=== PATIENT | female | born 1955 | race Caucasian/White ===

== ENCOUNTER → 2019-03-30 | Outpatient (CLI) | payer MEDICARE, BC ==
[~2019-03-30] MED LIST: LIDOCAINE 1% (MPF) 5 ML VIAL SC ONE
== END | disposition home or self-care (01) ==
LOC: RAD 12:40
PROVIDERS: ATTEND Nurse Practitioner Family
DX: R78.81 Bacteremia (principal)
CPT/HCPCS: 36569; 71045; 76937

== ENCOUNTER 2019-05-11 12:22 | Inpatient (IN) | payer MEDICARE, MEDICAID ==
[~2019-05-11] VITALS: Ht 167.6 cm; Wt 79.8 kg
[~2019-05-11 12:22] MED LIST changes: +ACET-141 PO; +ACET325T33 PO; +BISA10SU55 RC; +CALC1TAB93 PO; +DOCU-144 PO; +ERGO500013 PO; +FENT1PAT TRANSDERM; +FENT1PAT8 TRANSDERM; +GABA300C16 PO; +GLUC1TAB24 PO; +HEPA500021 IJ; +IPRA3AMP29 INHALATION; +LEVO112T57 PO; -LIDOCAINE 1% (MPF) 5 ML VIAL SC ONE; +M-171CAP PO; +MAGN400O19 PO; +MINE133E23 PR; +MULT-105 PO; +OXYC15TA70 PO; +POLY17PO6 PO; +PROP60CA7 PO; +SENN-120 PO; +TOPI100T11 PO; +VENL150C PO; +VENL75TA2 PO
[2019-05-11] MEDS ORDERED: SOD CHLORIDE 0.9% 1,000 ML IV STA (12:25)
[2019-05-11] MEDS ORDERED: ALBUTEROL 0.5% (NEB) 2.5 MG/0.5 ML AMP INH STA (12:25)
[2019-05-11] MEDS ORDERED: CEFEPIME 2GM/50 ML (PMX) 50 ML IVPB STA (12:25)
[2019-05-11] MEDS ORDERED: IPRATROPIUM (NEB) 0.5 MG/2.5 ML AMP INH STA (12:25)
[2019-05-11] MEDS ORDERED: DEXAMETHASONE 10 MG/ML 1 ML INJ IV STA (12:25)
[2019-05-11] MEDS ORDERED: VANCOMYCIN 1 GM (PMX) 250 ML IVPB ONE (12:30)
[2019-05-11 12:40] VITALS: Ht 167.6 cm; Wt 79.8 kg
[2019-05-11] MEDS ORDERED: ONDANSETRON 4 MG INJ IV PRN (17:00)
[2019-05-11] MEDS ORDERED: oxyCODONE (CR) 15 MG TAB [oxyCONTIN] PO ONE (18:00)
[2019-05-11] MEDS ORDERED: oxyCODONE 15 MG TAB PO PRN (18:30)
[2019-05-11] MEDS ORDERED: NACL 0.9% 3 ML SYG IV SCH (19:00)
[2019-05-11] MEDS ORDERED: morphine 2 MG INJ IV PRN (19:00)
[2019-05-11] MEDS ORDERED: VANCOMYCIN IV PER PHARMACY XX SCH (19:00)
[2019-05-11] MEDS ORDERED: GUAIFENESIN/CODEINE 5ML CUP PO PRN (19:00)
[2019-05-11] MEDS: ALBUTEROL/IPRATROPIUM (NEB) 3 ML AMP HHN SCH (20:20)
[2019-05-11] MEDS: TOPIRAMATE 100 MG TAB PO SCH (21:00)
[2019-05-11] MEDS: POLYETHYLENE GLYCOL 17 GM PACKET PO SCH (21:00)
[2019-05-11] MEDS: oxyCODONE 5 MG TAB PO PRN (22:37)
[2019-05-11] MEDS: SENNA/DOCUSATE NA (8.6MG/50MG) TAB PO SCH (22:38)
[2019-05-11] MEDS: CALCIUM/VITAMIN D (500/200) TAB PO SCH (22:38)
[2019-05-11] MEDS: GABAPENTIN 300 MG CAP PO SCH (22:39)
[2019-05-11] MEDS: VANCOMYCIN 750 MG (PMX) 250 ML IVPB SCH (22:41)
[2019-05-11] MEDS: METHYLPREDNISOLONE 40 MG INJ IV SCH (23:05)
[2019-05-12 00:10] VITALS: BP 142/82; PULSE 67; RESP 20
[2019-05-12] MEDS ORDERED: LORAZEPAM 2 MG INJ IV PRN ×2 (01:30)
[2019-05-12] MEDS: CEFEPIME 1GM/50 ML (PMX) 50 ML IVPB SCH ×2 (02:10→12:39)
[2019-05-12] MEDS: ALBUTEROL 0.083% (NEB) 2.5 MG/3 ML AMP HHN PRN (02:52)
[2019-05-12 04:18] VITALS: BP 147/80; PULSE 71; RESP 20
[2019-05-12] MEDS: METHYLPREDNISOLONE 40 MG INJ IV SCH ×3 (06:26→21:47)
[2019-05-12] MEDS: LEVOTHYROXINE 112 MCG TAB PO SCH (06:26)
[2019-05-12 07:35] VITALS: BP 155/74; PULSE 65; RESP 19
[2019-05-12] MEDS: ALBUTEROL/IPRATROPIUM (NEB) 3 ML AMP HHN SCH ×3 (08:23→20:48)
[2019-05-12] MEDS: BISACODYL 10 MG SUPP PR SCH (09:00)
[2019-05-12] MEDS: PROPRANOLOL (LA) 60 MG CAP PO SCH (09:29)
[2019-05-12] MEDS: TOPIRAMATE 100 MG TAB PO SCH ×2 (09:29→20:54)
[2019-05-12] MEDS: SENNA/DOCUSATE NA (8.6MG/50MG) TAB PO SCH ×2 (09:30→20:55)
[2019-05-12] MEDS: POLYETHYLENE GLYCOL 17 GM PACKET PO SCH ×2 (09:30→20:55)
[2019-05-12] MEDS: GABAPENTIN 300 MG CAP PO SCH ×3 (09:30→20:55)
[2019-05-12] MEDS: CALCIUM/VITAMIN D (500/200) TAB PO SCH ×2 (09:30→20:55)
[2019-05-12] MEDS: VANCOMYCIN 750 MG (PMX) 250 ML IVPB SCH ×2 (09:36→21:47)
[2019-05-12] MEDS: oxyCODONE 5 MG TAB PO PRN ×2 (09:54→14:01)
[2019-05-12] MEDS: ENOXAPARIN 40 MG/0.4 ML SYG SC SCH (10:02)
[2019-05-12 11:16] VITALS: BP 134/74; PULSE 64; RESP 19
[2019-05-12] MEDS: LIDOCAINE 5% PATCH TD SCH (14:40)
[2019-05-12 15:38] VITALS: BP 143/73; PULSE 70; RESP 20
[2019-05-12 20:00] VITALS: BP 179/85; PULSE 76; RESP 20
[2019-05-13] VITALS: BP 142/67; PULSE 73; RESP 20
[2019-05-13] MEDS: CEFEPIME 1GM/50 ML (PMX) 50 ML IVPB SCH (01:00)
[2019-05-13 04:00] VITALS: BP 147/74; PULSE 75; RESP 19
[2019-05-13] MEDS: METHYLPREDNISOLONE 40 MG INJ IV SCH (06:33)
[2019-05-13] MEDS: LEVOTHYROXINE 112 MCG TAB PO SCH (06:33)
[2019-05-13 07:57] VITALS: BP 174/84; PULSE 69; RESP 18
[2019-05-13] MEDS: PROPRANOLOL (LA) 60 MG CAP PO SCH (08:46)
[2019-05-13] MEDS: TOPIRAMATE 100 MG TAB PO SCH ×2 (08:46→20:07)
[2019-05-13] MEDS: GABAPENTIN 300 MG CAP PO SCH ×3 (08:46→20:07)
[2019-05-13] MEDS: CALCIUM/VITAMIN D (500/200) TAB PO SCH ×2 (08:46→20:07)
[2019-05-13] MEDS: oxyCODONE 5 MG TAB PO PRN ×4 (08:48→21:49)
[2019-05-13] MEDS: POLYETHYLENE GLYCOL 17 GM PACKET PO SCH ×2 (08:49→20:13)
[2019-05-13] MEDS: SENNA/DOCUSATE NA (8.6MG/50MG) TAB PO SCH ×2 (08:49→20:13)
[2019-05-13] MEDS: BISACODYL 10 MG SUPP PR SCH (08:49)
[2019-05-13] MEDS: ENOXAPARIN 40 MG/0.4 ML SYG SC SCH (08:57)
[2019-05-13] MEDS: ALBUTEROL/IPRATROPIUM (NEB) 3 ML AMP HHN SCH ×3 (09:56→20:19)
[2019-05-13] MEDS: VANCOMYCIN 750 MG (PMX) 250 ML IVPB SCH (10:56)
[2019-05-13] MEDS: LIDOCAINE 5% PATCH TD SCH (10:56)
[2019-05-13 12:40] VITALS: BP 131/94; PULSE 67; RESP 18
[2019-05-13] MEDS ORDERED: BACLOFEN 10 MG TAB PO SCH (16:00)
[2019-05-13] MEDS: MEROPENEM 1 GM/50ML(PMX) 50 ML IVPB SCH ×2 (16:08→20:07)
[2019-05-13 16:32] VITALS: BP 132/84; PULSE 67; RESP 18
[2019-05-13 20:00] VITALS: BP 159/77; PULSE 64; RESP 19
[2019-05-13] MEDS: BACLOFEN 10 MG TAB PO SCH (20:07)
[2019-05-13] MEDS: MUPIROCIN 2% 22 GM OINT TOP SCH (20:08)
[2019-05-13] MEDS ORDERED: MELATONIN 3 MG TABLET PO SCH (21:00)
[2019-05-13] MEDS: DICLOFENAC SODIUM 1% GEL 100 GM TUBE TP SCH (21:03)
[2019-05-13] MEDS: VANCOMYCIN 1 GM 250 ML IVPB SCH (21:03)
[2019-05-14] VITALS: BP 160/89; PULSE 60; RESP 19
[2019-05-14 04:00] VITALS: BP 152/85; PULSE 64; RESP 18
[2019-05-14] MEDS: LEVOTHYROXINE 112 MCG TAB PO SCH (06:09)
[2019-05-14] MEDS ORDERED: POTASSIUM CHLORIDE (SR) 20 MEQ TAB PO STA (07:42)
[2019-05-14 07:58] VITALS: BP 197/91; PULSE 65; RESP 20
[2019-05-14] MEDS: ALBUTEROL/IPRATROPIUM (NEB) 3 ML AMP HHN SCH ×3 (08:00→20:20)
[2019-05-14] MEDS: MEROPENEM 1 GM/50ML(PMX) 50 ML IVPB SCH ×2 (08:36→23:33)
[2019-05-14] MEDS: BACLOFEN 10 MG TAB PO SCH ×2 (08:37→12:58)
[2019-05-14] MEDS: BISACODYL 10 MG SUPP PR SCH ×2 (08:37→09:00)
[2019-05-14] MEDS: SENNA/DOCUSATE NA (8.6MG/50MG) TAB PO SCH ×2 (08:37→21:00)
[2019-05-14] MEDS: GABAPENTIN 300 MG CAP PO SCH ×3 (08:37→21:00)
[2019-05-14] MEDS: CALCIUM/VITAMIN D (500/200) TAB PO SCH ×2 (08:37→21:00)
[2019-05-14] MEDS: TOPIRAMATE 100 MG TAB PO SCH ×2 (08:37→21:00)
[2019-05-14] MEDS: MUPIROCIN 2% 22 GM OINT TOP SCH ×2 (08:38→23:42)
[2019-05-14] MEDS: DICLOFENAC SODIUM 1% GEL 100 GM TUBE TP SCH ×4 (08:38→23:42)
[2019-05-14] MEDS: PROPRANOLOL (LA) 60 MG CAP PO SCH (08:38)
[2019-05-14] MEDS: ENOXAPARIN 40 MG/0.4 ML SYG SC SCH (08:45)
[2019-05-14] MEDS: POLYETHYLENE GLYCOL 17 GM PACKET PO SCH ×3 (09:00→21:00)
[2019-05-14] MEDS: VANCOMYCIN 1 GM 250 ML IVPB SCH (11:25)
[2019-05-14] MEDS: oxyCODONE 5 MG TAB PO PRN (11:59)
[2019-05-14 12:27] VITALS: BP 163/65; PULSE 68; RESP 20
[2019-05-14 16:25] VITALS: BP 98/55; PULSE 57; RESP 19
[2019-05-14] MEDS: RIFAMPIN 300 MG CAP PO SCH (16:37)
[2019-05-14 20:12] VITALS: BP 135/95; PULSE 58; RESP 16
[2019-05-14] MEDS ORDERED: LORAZEPAM 2 MG INJ IV ONE (22:00)
[2019-05-15] MEDS: TRIMETHOPRIM/SULFAMETHOXAZOLE 15 ML in DEXTROSE 5% 500 ML IVPB SCH ×4 (00:40→22:09)
[2019-05-15 02:12] VITALS: BP 141/81; PULSE 62; RESP 18
[2019-05-15] MEDS: LEVOTHYROXINE 112 MCG TAB PO SCH ×2 (06:01→06:41)
[2019-05-15 07:50] VITALS: BP 142/89; PULSE 71; RESP 18
[2019-05-15] MEDS: ALBUTEROL/IPRATROPIUM (NEB) 3 ML AMP HHN SCH ×3 (08:09→19:47)
[2019-05-15] MEDS: PROPRANOLOL (LA) 60 MG CAP PO SCH (08:37)
[2019-05-15] MEDS: GABAPENTIN 300 MG CAP PO SCH ×3 (08:37→20:57)
[2019-05-15] MEDS: RIFAMPIN 300 MG CAP PO SCH (08:37)
[2019-05-15] MEDS: SENNA/DOCUSATE NA (8.6MG/50MG) TAB PO SCH ×2 (08:37→21:00)
[2019-05-15] MEDS: POLYETHYLENE GLYCOL 17 GM PACKET PO SCH ×2 (08:38→21:00)
[2019-05-15] MEDS: MUPIROCIN 2% 22 GM OINT TOP SCH ×2 (08:38→21:01)
[2019-05-15] MEDS: TOPIRAMATE 100 MG TAB PO SCH ×2 (08:38→20:57)
[2019-05-15] MEDS: CALCIUM/VITAMIN D (500/200) TAB PO SCH ×2 (08:38→20:57)
[2019-05-15] MEDS: DICLOFENAC SODIUM 1% GEL 100 GM TUBE TP SCH ×4 (08:38→21:01)
[2019-05-15] MEDS: ENOXAPARIN 40 MG/0.4 ML SYG SC SCH (08:40)
[2019-05-15] MEDS: BISACODYL 10 MG SUPP PR SCH (09:00)
[2019-05-15] MEDS: MEROPENEM 1 GM/50ML(PMX) 50 ML IVPB SCH ×2 (10:14→20:56)
[2019-05-15 14:00] VITALS: BP 146/64; PULSE 78; RESP 18
[2019-05-15] MEDS: oxyCODONE 5 MG TAB PO PRN ×3 (14:06→23:00)
[2019-05-15] MEDS ORDERED: POTASSIUM CHLORIDE (SR) 20 MEQ TAB PO STA (14:13)
[2019-05-15] MEDS: BACLOFEN 10 MG TAB PO PRN ×2 (18:32→20:57)
[2019-05-15 20:19] VITALS: BP 119/68; PULSE 84; RESP 18
[2019-05-15] MEDS: MELATONIN 3 MG TABLET PO PRN (21:06)
[2019-05-15] MEDS ORDERED: BACLOFEN 10 MG TAB PO ONE (22:00)
[2019-05-16 02:30] VITALS: BP 146/83; PULSE 71; RESP 19
[2019-05-16] MEDS: TRIMETHOPRIM/SULFAMETHOXAZOLE 15 ML in DEXTROSE 5% 500 ML IVPB SCH ×3 (05:53→22:28)
[2019-05-16] MEDS: LEVOTHYROXINE 112 MCG TAB PO SCH (06:03)
[2019-05-16 07:46] VITALS: BP 159/77; PULSE 72; RESP 18
[2019-05-16] MEDS: ALBUTEROL 0.083% (NEB) 2.5 MG/3 ML AMP HHN PRN (08:55)
[2019-05-16] MEDS: ALBUTEROL/IPRATROPIUM (NEB) 3 ML AMP HHN SCH ×3 (08:58→21:18)
[2019-05-16] MEDS: POLYETHYLENE GLYCOL 17 GM PACKET PO SCH ×2 (09:00→21:00)
[2019-05-16] MEDS: BISACODYL 10 MG SUPP PR SCH (09:00)
[2019-05-16] MEDS: SENNA/DOCUSATE NA (8.6MG/50MG) TAB PO SCH ×2 (09:00→21:00)
[2019-05-16] MEDS: MEROPENEM 1 GM/50ML(PMX) 50 ML IVPB SCH ×2 (09:48→21:39)
[2019-05-16] MEDS: GABAPENTIN 300 MG CAP PO SCH ×3 (09:48→21:39)
[2019-05-16] MEDS: RIFAMPIN 300 MG CAP PO SCH (09:49)
[2019-05-16] MEDS: PROPRANOLOL (LA) 60 MG CAP PO SCH (09:49)
[2019-05-16] MEDS: MUPIROCIN 2% 22 GM OINT TOP SCH ×2 (09:50→21:40)
[2019-05-16] MEDS: CALCIUM/VITAMIN D (500/200) TAB PO SCH ×2 (09:50→21:39)
[2019-05-16] MEDS: TOPIRAMATE 100 MG TAB PO SCH ×2 (09:50→21:39)
[2019-05-16] MEDS: DICLOFENAC SODIUM 1% GEL 100 GM TUBE TP SCH ×4 (09:51→21:40)
[2019-05-16] MEDS: ENOXAPARIN 40 MG/0.4 ML SYG SC SCH (09:53)
[2019-05-16] MEDS: BACLOFEN 10 MG TAB PO PRN ×2 (10:15→16:58)
[2019-05-16] MEDS: oxyCODONE 5 MG TAB PO PRN ×3 (10:15→18:45)
[2019-05-16 14:29] VITALS: BP 133/78; PULSE 78; RESP 16
[2019-05-16 20:00] VITALS: BP 125/70; PULSE 73; RESP 18
[2019-05-17 03:30] VITALS: BP 118/66; PULSE 60; RESP 16
[2019-05-17] MEDS: BACLOFEN 10 MG TAB PO PRN ×2 (05:30→18:05)
[2019-05-17] MEDS: oxyCODONE 5 MG TAB PO PRN ×5 (05:30→23:34)
[2019-05-17] MEDS: TRIMETHOPRIM/SULFAMETHOXAZOLE 15 ML in DEXTROSE 5% 500 ML IVPB SCH (06:04)
[2019-05-17] MEDS: LEVOTHYROXINE 112 MCG TAB PO SCH (06:04)
[2019-05-17] MEDS: ALBUTEROL/IPRATROPIUM (NEB) 3 ML AMP HHN SCH ×3 (08:00→19:21)
[2019-05-17 08:12] VITALS: BP 128/78; PULSE 62; RESP 18
[2019-05-17] MEDS: POLYETHYLENE GLYCOL 17 GM PACKET PO SCH ×2 (09:00→21:00)
[2019-05-17] MEDS: BISACODYL 10 MG SUPP PR SCH (09:00)
[2019-05-17] MEDS: CALCIUM/VITAMIN D (500/200) TAB PO SCH ×2 (09:56→21:18)
[2019-05-17] MEDS: GABAPENTIN 300 MG CAP PO SCH ×3 (09:56→21:19)
[2019-05-17] MEDS: VENLAFAXINE (XR) 75 MG CAP PO SCH (09:57)
[2019-05-17] MEDS: DICLOFENAC SODIUM 1% GEL 100 GM TUBE TP SCH ×4 (09:57→21:20)
[2019-05-17] MEDS: MUPIROCIN 2% 22 GM OINT TOP SCH ×2 (09:58→21:20)
[2019-05-17] MEDS: MEROPENEM 1 GM/50ML(PMX) 50 ML IVPB SCH ×2 (09:58→21:20)
[2019-05-17] MEDS: TOPIRAMATE 100 MG TAB PO SCH ×2 (10:14→21:19)
[2019-05-17] MEDS: RIFAMPIN 300 MG CAP PO SCH (10:14)
[2019-05-17] MEDS: PROPRANOLOL (LA) 60 MG CAP PO SCH (10:14)
[2019-05-17] MEDS: SENNA/DOCUSATE NA (8.6MG/50MG) TAB PO SCH ×2 (10:14→21:18)
[2019-05-17] MEDS: ENOXAPARIN 40 MG/0.4 ML SYG SC SCH (10:16)
[2019-05-17] MEDS: SOD CHLORIDE 0.9% 1,000 ML IV SCH (13:47)
[2019-05-17 13:57] VITALS: BP 157/74; PULSE 73; RESP 18
[2019-05-17] MEDS ORDERED: oxyCODONE 5 MG TAB PO PRN (15:30)
[2019-05-17] MEDS: DAPTOMYCIN 480 MG in SOD CHLORIDE 0.9% 100 ML IVPB SCH (15:41)
[2019-05-17 20:03] VITALS: BP 130/62; PULSE 70; RESP 18
[2019-05-18] MEDS: ONDANSETRON 4 MG INJ IV PRN (01:15)
[2019-05-18 01:24] VITALS: BP 134/65; PULSE 69; RESP 17
[2019-05-18] MEDS: SOD CHLORIDE 0.9% 1,000 ML IV SCH ×2 (06:14→11:22)
[2019-05-18] MEDS: BACLOFEN 10 MG TAB PO PRN ×2 (06:14→18:13)
[2019-05-18] MEDS: LEVOTHYROXINE 112 MCG TAB PO SCH (06:15)
[2019-05-18] MEDS: oxyCODONE 5 MG TAB PO PRN ×4 (07:35→19:53)
[2019-05-18 07:40] VITALS: BP 133/63; PULSE 61; RESP 18
[2019-05-18] MEDS: ALBUTEROL/IPRATROPIUM (NEB) 3 ML AMP HHN SCH ×3 (07:51→20:00)
[2019-05-18] MEDS: BISACODYL 10 MG SUPP PR SCH (09:00)
[2019-05-18] MEDS: MEROPENEM 1 GM/50ML(PMX) 50 ML IVPB SCH ×2 (10:04→20:53)
[2019-05-18] MEDS: SENNA/DOCUSATE NA (8.6MG/50MG) TAB PO SCH ×2 (10:05→20:52)
[2019-05-18] MEDS: RIFAMPIN 300 MG CAP PO SCH (10:05)
[2019-05-18] MEDS: PROPRANOLOL (LA) 60 MG CAP PO SCH (10:06)
[2019-05-18] MEDS: VENLAFAXINE (XR) 75 MG CAP PO SCH (10:06)
[2019-05-18] MEDS: TOPIRAMATE 100 MG TAB PO SCH ×2 (10:06→20:53)
[2019-05-18] MEDS: CALCIUM/VITAMIN D (500/200) TAB PO SCH ×2 (10:06→20:52)
[2019-05-18] MEDS: GABAPENTIN 300 MG CAP PO SCH ×3 (10:06→20:52)
[2019-05-18] MEDS: POLYETHYLENE GLYCOL 17 GM PACKET PO SCH ×2 (10:07→10:08)
[2019-05-18] MEDS: MUPIROCIN 2% 22 GM OINT TOP SCH ×2 (10:08→20:53)
[2019-05-18] MEDS: DICLOFENAC SODIUM 1% GEL 100 GM TUBE TP SCH ×4 (10:08→20:53)
[2019-05-18] MEDS: ENOXAPARIN 40 MG/0.4 ML SYG SC SCH (10:13)
[2019-05-18] MEDS: DAPTOMYCIN 480 MG in SOD CHLORIDE 0.9% 100 ML IVPB SCH (13:25)
[2019-05-18 14:32] VITALS: BP 119/66; PULSE 67; RESP 16
[2019-05-18 20:17] VITALS: BP 149/81; PULSE 75; RESP 16
[2019-05-18] MEDS: MELATONIN 3 MG TABLET PO PRN (23:09)
[2019-05-19] MEDS: oxyCODONE 5 MG TAB PO PRN ×3 (00:26→16:51)
[2019-05-19 01:44] VITALS: BP 132/67; PULSE 71; RESP 16
[2019-05-19] MEDS: ALBUTEROL/IPRATROPIUM (NEB) 3 ML AMP HHN SCH ×3 (08:00→20:00)
[2019-05-19 08:08] VITALS: BP 141/77; PULSE 73; RESP 16
[2019-05-19] MEDS: BISACODYL 10 MG SUPP PR SCH (09:00)
[2019-05-19] MEDS: DICLOFENAC SODIUM 1% GEL 100 GM TUBE TP SCH ×4 (09:00→23:02)
[2019-05-19] MEDS: MUPIROCIN 2% 22 GM OINT TOP SCH ×2 (09:00→23:02)
[2019-05-19] MEDS: POLYETHYLENE GLYCOL 17 GM PACKET PO SCH ×2 (10:03→23:01)
[2019-05-19] MEDS: MEROPENEM 1 GM/50ML(PMX) 50 ML IVPB SCH ×2 (10:04→23:01)
[2019-05-19] MEDS: VENLAFAXINE (XR) 75 MG CAP PO SCH (10:05)
[2019-05-19] MEDS: PROPRANOLOL (LA) 60 MG CAP PO SCH (10:05)
[2019-05-19] MEDS: CALCIUM/VITAMIN D (500/200) TAB PO SCH ×2 (10:06→23:01)
[2019-05-19] MEDS: SENNA/DOCUSATE NA (8.6MG/50MG) TAB PO SCH ×2 (10:06→21:00)
[2019-05-19] MEDS: RIFAMPIN 300 MG CAP PO SCH (10:06)
[2019-05-19] MEDS: TOPIRAMATE 100 MG TAB PO SCH ×2 (10:06→23:02)
[2019-05-19] MEDS: LEVOTHYROXINE 112 MCG TAB PO SCH (10:06)
[2019-05-19] MEDS: GABAPENTIN 300 MG CAP PO SCH ×3 (10:06→23:02)
[2019-05-19] MEDS: ENOXAPARIN 40 MG/0.4 ML SYG SC SCH (10:11)
[2019-05-19] MEDS: BACLOFEN 10 MG TAB PO PRN (11:16)
[2019-05-19] MEDS: DAPTOMYCIN 480 MG in SOD CHLORIDE 0.9% 100 ML IVPB SCH (14:14)
[2019-05-19 15:39] VITALS: BP 140/67; PULSE 73; RESP 16
[2019-05-19 19:00] VITALS: BP 125/78; PULSE 70; RESP 18
[2019-05-20 03:19] VITALS: BP 149/81; PULSE 69; RESP 18
[2019-05-20] MEDS: LEVOTHYROXINE 112 MCG TAB PO SCH (06:35)
[2019-05-20 07:46] VITALS: BP 137/73; PULSE 78; RESP 18
[2019-05-20] MEDS: ALBUTEROL/IPRATROPIUM (NEB) 3 ML AMP HHN SCH ×2 (08:00→14:00)
[2019-05-20] MEDS: POLYETHYLENE GLYCOL 17 GM PACKET PO SCH (09:00)
[2019-05-20] MEDS: DICLOFENAC SODIUM 1% GEL 100 GM TUBE TP SCH ×4 (09:00→21:03)
[2019-05-20] MEDS: SENNA/DOCUSATE NA (8.6MG/50MG) TAB PO SCH ×2 (09:00→21:00)
[2019-05-20] MEDS: BISACODYL 10 MG SUPP PR SCH (09:00)
[2019-05-20] MEDS: MEROPENEM 1 GM/50ML(PMX) 50 ML IVPB SCH (09:35)
[2019-05-20] MEDS: CALCIUM/VITAMIN D (500/200) TAB PO SCH ×2 (09:42→21:02)
[2019-05-20] MEDS: PROPRANOLOL (LA) 60 MG CAP PO SCH (09:42)
[2019-05-20] MEDS: TOPIRAMATE 100 MG TAB PO SCH ×2 (09:42→21:02)
[2019-05-20] MEDS: VENLAFAXINE (XR) 75 MG CAP PO SCH (09:42)
[2019-05-20] MEDS: GABAPENTIN 300 MG CAP PO SCH ×3 (09:42→21:02)
[2019-05-20] MEDS: RIFAMPIN 300 MG CAP PO SCH (09:42)
[2019-05-20] MEDS: ENOXAPARIN 40 MG/0.4 ML SYG SC SCH (09:47)
[2019-05-20] MEDS: MUPIROCIN 2% 22 GM OINT TOP SCH ×2 (09:48→21:03)
[2019-05-20] MEDS: DAPTOMYCIN 480 MG in SOD CHLORIDE 0.9% 100 ML IVPB SCH (13:56)
[2019-05-20 14:30] VITALS: BP 114/68; PULSE 83; RESP 18
[2019-05-20] MEDS ORDERED: BISACODYL 10 MG SUPP PR PRN (17:30)
[2019-05-20 20:19] VITALS: BP 124/87; PULSE 79; RESP 18
[2019-05-20] MEDS: ALBUTEROL 0.083% (NEB) 2.5 MG/3 ML AMP HHN PRN (22:17)
[2019-05-20] MEDS: MELATONIN 3 MG TABLET PO PRN (22:31)
[2019-05-21] MEDS: oxyCODONE 5 MG TAB PO PRN ×2 (02:28→19:10)
[2019-05-21 02:44] VITALS: BP 142/67; PULSE 83; RESP 18
[2019-05-21] MEDS: LEVOTHYROXINE 112 MCG TAB PO SCH ×2 (06:25→11:39)
[2019-05-21] MEDS: ALBUTEROL/IPRATROPIUM (NEB) 3 ML AMP HHN SCH ×4 (07:21→23:13)
[2019-05-21 08:19] VITALS: BP 142/66; PULSE 101; RESP 20
[2019-05-21] MEDS: SENNA/DOCUSATE NA (8.6MG/50MG) TAB PO SCH ×2 (09:00→21:00)
[2019-05-21] MEDS ORDERED: PROPOFOL 40 ML ONE (09:45)
[2019-05-21] MEDS ORDERED: FENTAnyl 50 MCG/ML VIAL ONE (09:45)
[2019-05-21] MEDS ORDERED: LIDOCAINE 100 MG SYRINGE ONE (09:45)
[2019-05-21] MEDS: RIFAMPIN 300 MG CAP PO SCH (11:37)
[2019-05-21] MEDS: VENLAFAXINE (XR) 75 MG CAP PO SCH (11:37)
[2019-05-21] MEDS: DICLOFENAC SODIUM 1% GEL 100 GM TUBE TP SCH ×5 (11:37→21:02)
[2019-05-21] MEDS: PROPRANOLOL (LA) 60 MG CAP PO SCH (11:38)
[2019-05-21] MEDS: CALCIUM/VITAMIN D (500/200) TAB PO SCH ×2 (11:38→21:00)
[2019-05-21] MEDS: GABAPENTIN 300 MG CAP PO SCH ×3 (11:39→21:00)
[2019-05-21] MEDS: TOPIRAMATE 100 MG TAB PO SCH ×2 (11:46→21:00)
[2019-05-21] MEDS: MUPIROCIN 2% 22 GM OINT TOP SCH ×2 (11:47→21:02)
[2019-05-21] MEDS: DAPTOMYCIN 480 MG in SOD CHLORIDE 0.9% 100 ML IVPB SCH (13:25)
[2019-05-21 14:24] VITALS: BP 155/74; PULSE 83; RESP 17
[2019-05-21 20:44] VITALS: BP 127/89; PULSE 89; RESP 17
[2019-05-21] MEDS: LACTOBACILLUS RHAMNOSUS CAP PO SCH (21:00)
[2019-05-21] MEDS: MELATONIN 3 MG TABLET PO PRN (22:32)
[2019-05-22 02:25] VITALS: BP 140/89; PULSE 93; RESP 18
[2019-05-22] MEDS: ONDANSETRON 4 MG INJ IV PRN (02:28)
[2019-05-22] MEDS ORDERED: ASA/ACETAMINOPHEN/CAFF TAB PO ONE (05:30)
[2019-05-22] MEDS ORDERED: ACET/BUTAL/CAFF TAB PO ONE (06:00)
[2019-05-22 08:00] VITALS: BP 123/84; PULSE 78; RESP 18
[2019-05-22] MEDS: ALBUTEROL/IPRATROPIUM (NEB) 3 ML AMP HHN SCH ×2 (08:00→16:23)
[2019-05-22] MEDS: SENNA/DOCUSATE NA (8.6MG/50MG) TAB PO SCH (09:00)
[2019-05-22] MEDS ORDERED: ENOXAPARIN 40 MG/0.4 ML SYG SC SCH (09:00)
[2019-05-22] MEDS: GABAPENTIN 300 MG CAP PO SCH ×2 (09:42→12:24)
[2019-05-22] MEDS: RIFAMPIN 300 MG CAP PO SCH (09:42)
[2019-05-22] MEDS: VENLAFAXINE (XR) 75 MG CAP PO SCH (09:42)
[2019-05-22] MEDS: CALCIUM/VITAMIN D (500/200) TAB PO SCH (09:43)
[2019-05-22] MEDS: LACTOBACILLUS RHAMNOSUS CAP PO SCH (09:43)
[2019-05-22] MEDS: LEVOTHYROXINE 112 MCG TAB PO SCH (09:43)
[2019-05-22] MEDS: PROPRANOLOL (LA) 60 MG CAP PO SCH (09:43)
[2019-05-22] MEDS: TOPIRAMATE 100 MG TAB PO SCH (09:44)
[2019-05-22] MEDS: DICLOFENAC SODIUM 1% GEL 100 GM TUBE TP SCH ×3 (09:44→17:00)
[2019-05-22] MEDS: MUPIROCIN 2% 22 GM OINT TOP SCH (09:44)
[2019-05-22] MEDS ORDERED: ACET/BUTAL/CAFF TAB PO PRN (11:00)
[2019-05-22 14:00] VITALS: BP 127/63; PULSE 85; RESP 16
[2019-05-22] MEDS: DAPTOMYCIN 480 MG in SOD CHLORIDE 0.9% 100 ML IVPB SCH (14:19)
== END 2019-05-22 18:55 | DRG 871 ==
LOC: E/R 12:22 → 6WM 16:56 → 2NE 05-14 19:47
PROVIDERS: ADMIT Internal Medicine; ATTEND Internal Medicine
DX: A41.02 Sepsis due to Methicillin resistant Staphylococcus aureus (principal); J18.9 Pneumonia, unspecified organism; G92 Toxic encephalopathy; N39.0 Urinary tract infection, site not specified; M46.26 Osteomyelitis of vertebra, lumbar region; N17.9 Acute kidney failure, unspecified; Z66 Do not resuscitate; E03.9 Hypothyroidism, unspecified; G43.909 Migraine, unspecified, not intractable, without status migrainosus; G89.29 Other chronic pain; D63.8 Anemia in other chronic diseases classified elsewhere; Z96.641 Presence of right artificial hip joint; Z87.891 Personal history of nicotine dependence; E83.9 Disorder of mineral metabolism, unspecified; Z16.12 Extended spectrum beta lactamase (ESBL) resistance; B96.20 Unspecified Escherichia coli [E. coli] as the cause of diseases classified elsewhere
CPT/HCPCS: 36415; 36573; 70450; 71045; 72141; 72146; 72148; 72157; 72158; 76775; 80048; 80053; 80069; 80202; 81001; 81003; 82043; 82550; 83036; 83605; 83690; 83735; 84100; 84145; 84155; 84300; 84439; 84443; 84480; 84484; 85025; 85610; 85651; 85730; 86140; 87070; 87081; 87086; 93005; 93306; 93312; 93325; 94640; 94644; 94664; 94669; 96374; 96375; 97110; 97116; 97162; 97165; 97530; 97535; J0692; J1100; J1650; J2001; J2060; J2185; J2270; J2405; J2920; J3010; J3370; J7030; J7060